=== PATIENT | male | born 1955 | race Caucasian/White ===

== ENCOUNTER 2021-11-02 18:00 | Emergency (ER) | payer MEDICARE, OTHER ==
[~2021-11-02] VITALS: Ht 170.2 cm; Wt 113.4 kg
--- NOTE | 2021-11-02 18:12 | NUR ---
PT BIBWIFE C/O LOSS OF APPETITE, VOMITING, COUGH X 9DAYS, COVID+ 3DAYS " I AM DEHYDRATED, MY DOCTOR SAID I NEED AN IV FLUIDS." PT TOLERATING R/A WELL AT 95%.
[2021-11-02] MEDS ORDERED: ONDANSETRON HCL/PF 4 MG/2 ML VIAL ONE (18:50)
[2021-11-02] MEDS ORDERED: IV NS 0.9% 500 ML BAG IV ONE (19:00)
[2021-11-02] MEDS ORDERED: ONDANSETRON HCL/PF 4 MG/2 ML VIAL IVP ONE (19:00)
--- NOTE | 2021-11-02 19:00 | NUR ---
R WRIST #20G S/L. VIF NS 500ML INFUSING ORDERED.
[2021-11-02] MEDS ORDERED: ONDA4TAB5 PO (19:37)
--- NOTE | 2021-11-02 20:47 | NUR ---
Patient discharged to home in stable condition. Written and verbal after care instructions given. Patient verbalizes understanding of instruction.
[2021-11-02 20:48] VITALS: BP 131/81
== END 2021-11-02 20:48 | disposition home or self-care (01) ==
LOC: ER 18:02
DX: U07.1 COVID-19 (principal); I10 Essential (primary) hypertension; E11.9 Type 2 diabetes mellitus without complications
CPT/HCPCS: 96361; 96374; 99283; J2405; J7040

== ENCOUNTER 2021-11-03 22:25 | Emergency (ER) | payer MEDICARE, OTHER ==
[~2021-11-03] VITALS: Ht 175.3 cm; Wt 113.4 kg
[~2021-11-03 22:25] MED LIST: ONDA4TAB5 PO
--- NOTE | 2021-11-03 22:35 | NUR ---
BIB FOR C/O L SIDED CP. TSTED + FOR COVID 4 DAYS AGO. PT A/OX3. TOLERATING R/A AT 93% WITH SOB. CONENCTED PT TO POX AND [facility].
--- NOTE | 2021-11-03 23:05 | NUR ---
RFA #20G S/L; PATENT AND INTACT. BLOOD COLLECTED AND GIVEN TO LAB
--- NOTE | 2021-11-03 23:22 | NUR ---
CHEMICAL EQUIPMENT REPAIRER AT PT'S BEDSIDE
[2021-11-03 23:44] LABS: BASOPHILS % (AUTO) 0.1 % (0.0-2.0); EOSINOPHILS % (AUTO) 0.3 % (0.0-6.0); HEMATOCRIT 45 % (39-51); HEMOGLOBIN 14.9 g/dL (13.5-17.5); LYMPHOCYTES # (AUTO) 0.6 K/uL (0.8-4.8); LYMPHOCYTES % (AUTO) 22.4 % (20.0-44.0); MEAN CORPUSCULAR HGB CONC 33 g/dl (31.0-36.0); MEAN CORPUSCULAR VOLUME 78 fL (80-96); MONOCYTES # (AUTO) 0.3 K/uL (0.1-1.30); NEUTROPHILS # (AUTO) 1.9 K/uL (1.8-8.9); NEUTROPHILS % (AUTO) 65.2 % (43.0-81.0); PLATELET COUNT (AUTO) 71 K/uL (150-450); RED BLOOD CELL COUNT(AUTO) 5.74 MIL/uL (4.5-6.0); WHITE BLOOD COUNT (AUTO) 2.9 K/uL (4.3-11.0)
--- NOTE | 2021-11-03 23:44 | NUR ---
JASON SANTANA AT PT'S BEDSIDE
[2021-11-03 23:53] LABS: CALCIUM, SERUM 7.9 mg/dL (8.5-10.1); CARBON DIOXIDE 22 mmol/L (21-32); CHLORIDE 98 mmol/L (98-107); CREATININE 1.3 mg/dL (0.6-1.3); GLUCOSE 274 mg/dL (74-106); POTASSIUM 4.5 mmol/L (3.5-5.1); SODIUM SERUM 129 mmol/L (136-145); UREA NITROGEN, BLOOD 20 mg/dL (7-18)
[2021-11-04] MEDS ORDERED: REMDESIVIR (CHARGED) 200 MG, *LOADING DOSE 1 EA in IV NS 0.9% 210 ML IV ONE ×3
[2021-11-04] MEDS ORDERED: DEXAMETHASONE SOD PHOSPHATE 10 MG/ML VIAL IV ONE
--- NOTE | 2021-11-04 00:10 | NUR ---
MRSA SWAB COLLECTED AND SENT TO LAB. PATIENT'S BELONGINGS LIST DONE.
[2021-11-04] MEDS ORDERED: DEXAMETHASONE SOD PHOSPHATE 10 MG/ML VIAL ONE ×2 (00:47→07:56)
[2021-11-04] MEDS ORDERED: ONDANSETRON HCL/PF 4 MG/2 ML VIAL ONE (00:47)
[2021-11-04] MEDS ORDERED: ENOXAPARIN SODIUM 40 MG/0.4 ML DISP.SYRIN SQ SCH (01:00)
[2021-11-04] MEDS ORDERED: ACETAMINOPHEN 325 MG TABLET PO PRN (01:00)
[2021-11-04] MEDS ORDERED: MAG HYDROX/AL HYDROX/SIMETH 30 ML UDC PO PRN (01:00)
[2021-11-04] MEDS ORDERED: MAGNESIUM HYDROXIDE 30 ML UDC PO PRN (01:00)
[2021-11-04] MEDS ORDERED: ONDANSETRON HCL/PF 4 MG/2 ML VIAL IVP ONE (01:00)
[2021-11-04] MEDS ORDERED: DEXTROSE 50%-WATER 50 ML DISP.SYRIN IV PRN (01:00)
[2021-11-04] MEDS ORDERED: IV NS 0.9% 500 ML BAG IV ONE (01:00)
[2021-11-04] MEDS ORDERED: ONDANSETRON HCL/PF 4 MG/2 ML VIAL IVP PRN (01:00)
[2021-11-04] MEDS ORDERED: Z GUARD REMEDY 4 OZ OINT TP PRN (01:00)
--- NOTE | 2021-11-04 01:13 | NUR ---
COVID SWAB COLLECTED AND SENT TO LAB
[2021-11-04 01:23] LABS: C-REACTIVE PROTEIN 4.6 mg/dL (0.0-0.9)
[2021-11-04 01:25] LABS: D-DIMER 0.66 mg/L(FEU (0.17-0.50)
--- NOTE | 2021-11-04 01:32 | NUR ---
INFLUENZA SWAB COLLECTED AND SENT TO LAB
[2021-11-04] MEDS ORDERED: ENOXAPARIN SODIUM 40 MG/0.4 ML DISP.SYRIN SQ ONE ×2 (01:47→07:47)
--- NOTE | 2021-11-04 02:01 | NUR ---
PT ON 4 L O2 VIA NC. AWARE OF ABG RESULTS
[2021-11-04] MEDS ORDERED: ESOM40CA52 PO (06:36)
[2021-11-04] MEDS ORDERED: MONT10TA22 PO (06:36)
[2021-11-04] MEDS ORDERED: LISI40TA13 PO (06:36)
[2021-11-04] MEDS ORDERED: GLIP10TA11 PO (06:36)
[2021-11-04] MEDS ORDERED: CLON0.1T PO (06:36)
[2021-11-04] MEDS ORDERED: ASPI-1420 PO (06:36)
[2021-11-04] MEDS ORDERED: CITA20TA16 PO (06:36)
[2021-11-04] MEDS ORDERED: EZET-61 PO (06:36)
[2021-11-04] MEDS ORDERED: CARV6.252 PO (06:36)
--- NOTE | 2021-11-04 07:24 | NUR ---
PT REMAINS IN SATBLE CONDITION V/S STABLE . REPORT GIVEN TO MICHELLE FOR KIP
[2021-11-04] MEDS ORDERED: PANTOPRAZOLE 40 MG TABLET.DR PO SCH (07:30)
[2021-11-04] MEDS ORDERED: PANTOPRAZOLE 40 MG TABLET.DR PO ONE (07:47)
[2021-11-04] MEDS: BLOOD SUGAR DIAGNOSTIC 1 EACH STRIP IN SCH ×2 (08:04→12:20)
[2021-11-04] MEDS ORDERED: INSU100V3 SQ (08:07)
[2021-11-04] MEDS ORDERED: INSU100V7 SQ (08:07)
[2021-11-04] MEDS: INSULIN REGULAR, HUMAN 100 UNIT/ML 3 ML VIAL SQ PRN ×2 (08:26→12:29)
[2021-11-04] MEDS ORDERED: DEXAMETHASONE SOD PHOSPHATE 10 MG/ML VIAL IV SCH (09:00)
[2021-11-04 10:24] LABS: BAND % (MANUAL) 3 % (0.0-5.0); LYMPHOCYTES % (MANUAL) 25 % (16-48); MONOCYTES % (MANUAL) 11 % (0-11.0); NEUTROPHILS % (MANUAL) 61 (42-76)
--- NOTE | 2021-11-04 11:59 | NUR ---
BLOOD SUGAR READING IS 391. THE PATIENT REFUSES INSULIN ADMINISTRATION STATING THAT HE IS GOING AMA.
--- NOTE | 2021-11-04 13:31 | NUR ---
The patient is alert and oriented x4. Denies pain. The patient`s/ oxygen saturation in room air is at 88% and despite explaining risks and benefits the patient signing AMA. ALONDRA Rodriguez is made aware. ALONDRA Rodriguez at the bedside. IV removed. Catheter intact and site benign. Pressure and 4x4 applied to site. No bleeding noted.Patient does not wish to proceed with medical care recommended by ALONDRA Rodriguez. Patient given information related to possible complications, up to and including , which could occur as a result of leaving the hospital at this time. Patient verbalizes understanding of risks involved due to leaving against medical advice. Patient has signed AMA form. The patient is picked up by . The patient`s son Yunior made aware the patient signing AMA. Alodnra Rodriguez made aware.
--- NOTE | 2021-11-04 13:33 | NUR ---
Loulou osorioarlette in ED - 11/04/21 at 1337 by MARTIN BLOOD SUGAR READING IS 391. THE PATIENT REFUSES INSULIN ADMINISTRATION STATING THAT HE IS GOING AMA.
[2021-11-04 13:39] VITALS: BP 120/84
== END 2021-11-04 13:40 | disposition left against medical advice (07) ==
LOC: ER 22:27 → TRANSITION 11-04 01:17 → UNDOADMIN 11-04 01:17
DX: J18.9 Pneumonia, unspecified organism (principal); J96.01 Acute respiratory failure with hypoxia; Z20.822 Contact with and (suspected) exposure to COVID-19; Z79.4 Long term (current) use of insulin; Z86.16 Personal history of COVID-19; E87.1 Hypo-osmolality and hyponatremia; J44.0 Chronic obstructive pulmonary disease with (acute) lower respiratory infection; D61.818 Other pancytopenia; R79.1 Abnormal coagulation profile; I34.0 Nonrheumatic mitral (valve) insufficiency; E78.5 Hyperlipidemia, unspecified; Z53.29 Procedure and treatment not carried out because of patient's decision for other reasons; I10 Essential (primary) hypertension; R79.89 Other specified abnormal findings of blood chemistry; Z79.82 Long term (current) use of aspirin; Z79.899 Other long term (current) drug therapy; E11.65 Type 2 diabetes mellitus with hyperglycemia
CPT/HCPCS: 36415 ×2; 71045; 80048; 82550; 82962 ×2; 83605; 83615; 83880; 84145; 84484 ×2; 85007; 85025; 85378; 85385; 86140; 87081; 87426; 87804; 93005; 96361; 96372 ×2; 96374 ×2; 96375; 99285; J1100 ×3; J1650 ×3; J2405 ×2; J7040; A4216; G0378; J7050